=== PATIENT | female | born 1940 | race Caucasian/White ===

== ENCOUNTER 2017-08-25 13:41 | Inpatient (IN) | payer OTHER ==
[~2017-08-25] VITALS: Ht 149.9 cm; Wt 82.5 kg
[~2017-08-25 13:41] MED LIST: CELEBREX200 MG PO; GABAPENTIN100 MG PO; LEVOTHYROXINE25 MCG PO; Levothroid,Synthroid PO; Motrin PO; NEURONTIN
[2017-08-25 15:45] LABS: HEMATOCRIT 38.1 % (36.0-46.0); MCH 20.6 PG (29.0-34.0); MCHC 31.8 G/DL (30.0-36.0); MCV 64.9 FL (83-99); MEAN PLAT.VOLUME 10.9 uM^3 (9.5-12.4); NRBC (%) 0.2 /100 WBC (0-0); PLATELET COUNT 242 K/uL (156-360); RBC DIS.WIDTH-CV 17.9 % (11.8-14.6); RBC DIS.WIDTH-SD 37.3 % (39-53); RED BLOOD COUNT 5.87 M/uL (3.80-5.20); WHITE BLOOD COUNT 10.7 K/uL (4.1-10.2)
[2017-08-25 15:47] LABS: CHLORIDE 104 mEq/L (99-109); POTASSIUM 3.5 mEq/L (3.7-5.4); SODIUM 139 mEq/L (136-147)
[2017-08-25 15:48] LABS: GLUCOSE 141 mg/dL (70-99)
[2017-08-25 15:50] LABS: ANION GAP 11 MEQ/L (2-14)
[2017-08-25 15:52] LABS: GFR ESTIMATE (CALCULATED) > 59 mL/min/
[2017-08-25 15:53] LABS: UREA NITROGEN (BUN) 20 mg/dL (9-23)
[2017-08-25 16:00] LABS: TROP-I INTERPRETATION NEGATIVE; TROPONIN-I < 0.01 ng/mL (0.0-0.30)
[2017-08-25] MEDS ORDERED: VENTOLIN HFA18 GM IH (18:01)
[2017-08-25] MEDS ORDERED: TIZANIDINE HCL2 MG PO (18:02)
[2017-08-25] MEDS ORDERED: PHENERGAN-CODE120 ML PO (18:05)
[2017-08-25] MEDS ORDERED: CHEWABLE-VITE1 EACH PO (18:06)
[2017-08-25] MEDS ORDERED: VITAMIN D31000 UNIT PO (18:06)
[2017-08-25] MEDS ORDERED: TYLENOL EXTRA500 MG PO (18:10)
[2017-08-26 00:01] VITALS: BP 155/73
[2017-08-26 07:13] VITALS: BP 124/66
[2017-08-26 15:34] VITALS: BP 120/64
[2017-08-26 19:15] VITALS: BP 140/61
[2017-08-26 23:13] VITALS: BP 136/70
[2017-08-27 04:12] VITALS: BP 129/71
[2017-08-27 07:25] VITALS: BP 134/74
[2017-08-27 11:24] VITALS: BP 113/60
[2017-08-27 15:25] VITALS: BP 126/59
[2017-08-27 19:48] VITALS: BP 120/65
[2017-08-27 23:18] VITALS: BP 116/56
[2017-08-28 06:41] LABS: ANION GAP 4 MEQ/L (2-14); CHLORIDE 104 MEQ/L (99-109); EOSINOPHIL (%) 3.2 % (0-5); EOSINOPHIL COUNT 0.2 K/uL (0-0.3); GFR ESTIMATE (CALCULATED) > 59 mL/min/; HEMATOCRIT 35.3 % (36.0-46.0); IMMATURE GRANULOCYTE (%) 0.1 % (0.0-0.7); INSTRUMENT ABS NEUTROPHIL CT 3.6 K/uL; LYMPHOCYTE COUNT 2.3 K/uL (1.0-2.8); MCH 20.3 PG (29.0-34.0); MCHC 30.6 G/DL (30.0-36.0); MCV 66.2 FL (83-99); MEAN PLAT.VOLUME 11.1 uM^3 (9.5-12.4); MONOCYTE (%) 11.4 % (3-12); MONOCYTE COUNT 0.8 K/uL (0-0.8); NEUTROPHIL (%) 51.9 % (45-76); NEUTROPHIL COUNT 3.6 K/uL (1.8-6.4); PLATELET COUNT 229 K/uL (156-360); RBC DIS.WIDTH-SD 38.5 % (39-53); RED BLOOD COUNT 5.33 M/uL (3.80-5.20); SAMPLE HEMOLYSIS CHECK 0; SAMPLE ICTERIC CHECK 0; SAMPLE LIPEMIA CHECK 0; SODIUM 141 MEQ/L (136-147); UREA NITROGEN (BUN) 14 mg/dL (9-23); WHITE BLOOD COUNT 6.9 K/uL (4.1-10.2)
[2017-08-28 06:51] LABS: GLUCOSE 93 mg/dL (70-99); POTASSIUM 4.3 MEQ/L (3.7-5.4)
[2017-08-28 07:08] VITALS: BP 130/60
[2017-08-28 16:22] VITALS: BP 121/56
[2017-08-29 07:09] VITALS: BP 132/67
[2017-08-29 15:41] VITALS: BP 132/62
[2017-08-29 19:02] VITALS: BP 137/65
[2017-08-29 22:38] VITALS: BP 130/72
[2017-08-30 03:17] VITALS: BP 142/74
[2017-08-30 06:34] VITALS: BP 161/75
[2017-08-30 11:16] VITALS: BP 119/57
[2017-08-30 15:29] VITALS: BP 129/64
[2017-08-30 18:54] VITALS: BP 125/58
[2017-08-30 22:25] VITALS: BP 130/61
[2017-08-31 03:50] VITALS: BP 121/56
[2017-08-31 07:39] VITALS: BP 126/64
[2017-08-31 11:20] VITALS: BP 114/53
[2017-08-31 16:22] VITALS: BP 123/56
[2017-08-31 22:59] VITALS: BP 129/61
[2017-09-01 06:48] LABS: ANION GAP 7 MEQ/L (2-14); CHLORIDE 101 MEQ/L (99-109); GFR ESTIMATE (CALCULATED) > 59 mL/min/; GLUCOSE 86 mg/dL (70-99); POTASSIUM 4.5 MEQ/L (3.7-5.4); SAMPLE HEMOLYSIS CHECK 0; SAMPLE ICTERIC CHECK 0; SAMPLE LIPEMIA CHECK 0; SODIUM 141 MEQ/L (136-147); UREA NITROGEN (BUN) 17 mg/dL (9-23)
[2017-09-01 06:57] LABS: MCH 20.9 PG (29.0-34.0); MCHC 32.3 G/DL (30.0-36.0); MCV 64.9 FL (83-99); MEAN PLAT.VOLUME 10.6 uM^3 (9.5-12.4); NRBC (%) 0.2 /100 WBC (0-0); PLATELET COUNT 273 K/uL (156-360); RBC DIS.WIDTH-CV 16.3 % (11.8-14.6); RBC DIS.WIDTH-SD 36.8 % (39-53); RED BLOOD COUNT 4.78 M/uL (3.80-5.20); WHITE BLOOD COUNT 10.1 K/uL (4.1-10.2)
[2017-09-01 07:20] VITALS: BP 135/63
[2017-09-01 15:35] VITALS: BP 122/61
[2017-09-01] MEDS ORDERED: ADVAIR HFA120 INHALA IH (16:26)
[2017-09-01] MEDS ORDERED: PREDNISONE20 MG PO (16:27)
[2017-09-01] MEDS ORDERED: AUGMENTIN875 MG PO (16:28)
[2017-09-01] MEDS ORDERED: LORAZEPAM0.5 MG PO (16:29)
== END 2017-09-01 18:06 | disposition home or self-care (01) | DRG 190 ==
LOC: EME 13:41 → EDOF 18:30 → 5EAST 18:30 → ENRESERV 18:40 → 5EAST 20:03
PROVIDERS: Family Medicine; Physician Assistant Medical
DX: J44.0 Chronic obstructive pulmonary disease with (acute) lower respiratory infection (principal); J18.9 Pneumonia, unspecified organism; J20.9 Acute bronchitis, unspecified; J44.1 Chronic obstructive pulmonary disease with (acute) exacerbation; R09.02 Hypoxemia; G50.0 Trigeminal neuralgia; E03.9 Hypothyroidism, unspecified; E66.01 Morbid (severe) obesity due to excess calories; F41.9 Anxiety disorder, unspecified; G89.4 Chronic pain syndrome; M19.90 Unspecified osteoarthritis, unspecified site; Z87.891 Personal history of nicotine dependence; Z90.49 Acquired absence of other specified parts of digestive tract
CPT/HCPCS: 71020; 71270; 80048; 83605; 84484; 85025; 85027; 87040; 93005; 94640; 94640 76; 94644; 94799; 99202; 99281; 99285; J0456; J0696; J2930; J7030; J7512